=== PATIENT | female | born 1955 | race Caucasian/White ===

== ENCOUNTER 2017-06-04 19:17 | Observation (INO) ==
[2017-06-04] MEDS ORDERED: SALINE FLUSH 10ml SYRINGE IVF PRN (19:40)
[2017-06-04] MEDS ORDERED: ASPIRIN 81 MG CHEWABLE TABLET PO ONE (19:40)
--- NOTE | 2017-06-04 20:29 | Emergency Department Report ---
Chest Pain HPI - General Chief Complaint: Chest Pain Stated Complaint: cp Time Seen by Provider: 06/04/17 20:10 Source: patient, RN notes reviewed, old records reviewed Mode of arrival: ambulatory Limitations: no limitations - History of Present Illness HPI narrative: 62yo woman presents to the ER tonight for evaluation of CP. Pt had abrupt onset of right-sided CP while driving (around 1800); pt took x2 325mg ASA for the crushing, crescendo CP that radiated into her right jaw. Pt has never had sx like this before. Has a h/o borderline HL and HTN which are currently untreated. Has a strongly positive FHx of CAD/ME. By the time pt presented to the ER, 1hr after sx onset, her sx had resolved. Pt has had URI sx recently; took dayquil this AM (1/2 dose) and did not repeat the dose through the day. MD complaint: chest pain Occurred At: other Onset (ago): hour(s) (1) Duration: now resolved Onset: during exertion Pain location: substernal, right chest Severity: severe Severity scale (1-10): 8 Quality: heaviness Pain radiation: jaw/teeth Relieving factors: other (ASA) Associated symptoms: diaphoresis Aspirin Today: 325 mg x 1 (x2), provided at home Treatments prior to arrival chest pain: aspirin - Related Data On Oral Contraceptives: No Home Medications Medication Instructions Recorded Confirmed Aspirin 650 mg PO TID PRN 06/04/17 06/04/17 Dm/Acetaminophen/Doxylamine [Night 1 cap PO Q4H PRN 06/04/17 06/04/17 Time Cold-Flu Softgel] Dm/Pseudoephed/Acetaminophen 1 cap PO Q4H PRN 06/04/17 06/04/17 [Day-Time Cold-Flu Softgel] Allergies Allergy/AdvReac Type Severity Reaction Status Date / Time hydrocodone Allergy Unknown Nausea and Verified 06/04/17 19:45 Vomiting oxycodone Allergy Unknown Nausea and Verified 06/04/17 19:45 Vomiting Review of Systems All systems: reviewed and negative except as stated Cardiovascular: Reports: as per HPI, chest pain, dyspnea on exertion. Denies: palpitations, orthopnea, edema, syncope, paroxysmal nocturnal dyspnea PFSH Patient Stated Medical History Other Musculoskeletal Yes: rt shoulder - Social History Smoking status: Never smoker Physical Exam - Limitations Limitations: no limitations - General General appearance: alert, in no apparent distress - Normal Exams: Head:: Normocephalic without trauma Eyes:: Pupils are PERRLA w/ EOMI, No scleral icterus, irritation, or foreign bodies noted ENMT:: No facial trauma, nasal exudates, pharyngeal erythema, or exudates are noted Neck:: Full range of motion, without adenopathy Chest/Respirations:: Clear all wood[place], with good airflow, and symmetry bilaterally Cardiovascular:: Regular rate and rhythm, without murmur or gallop, Pulses 2+ all extremities, capillary refill, <2 seconds all extremities Abdomen:: Bowel sounds positive, soft, non-tender, non-distended, no hepatosplenomegaly, masses or bruits noted Lymphatic:: No lymphadenopathy Musculoskeletal:: No tenderness, or deformity noted, good range of motion, all extremities Integumentary:: No rashes, hives, or bruising noted, hair and nails, without abnormality Neurological:: Patient is alert, and oriented, cranial nerves, motor/sensory/ cerebellar, exams w/o gross deficits Psychiatric:: Patient exhibits, appropriate attention Course Vital Signs Temperature 98.2 F 06/04/17 19:34 Pulse Rate 86 06/04/17 19:34 Respiratory Rate 20 06/04/17 19:34 Blood Pressure 150/68 H 06/04/17 19:34 Pulse Oximetry 98 06/04/17 19:34 Temperature 98.2 F 06/04/17 19:34 Pulse Rate 82 06/04/17 20:01 Respiratory Rate 20 06/04/17 20:01 Blood Pressure 149/65 H 06/04/17 20:01 Pulse Oximetry 98 06/04/17 20:01 Chest Pain - MDM Narrative Medical decision making narrative: Pt with strong FHx of CAD/ME. Given pts sx (chest heaviness/pressure) and duration since sx onset (<6hrs) will contact hospitalist for admission for overnight CP r/o. Pt voiced understanding of dx, prognosis, tx, and f/u need. - Differential Diagnosis Likely: fracture of rib, pneumothorax, stable angina, unstable angina pectoris, atypical chest pain, costochondritis, chest pain - Medical Records Data Attestation: I reviewed the patient's medical records. - Lab Data Attestation: I reviewed the patient's lab results. Result diagrams: 06/04/17 19:49 06/04/17 19:49 Lab Results 06/04/17 06/04/17 Range/Units 19:49 19:49 WBC 5.7 (4.5-11.0) T/MM3 RBC 4.54 (4.00-5.20) M/MM3 Hgb 13.9 (12-16) GM/DL Hct 41.4 (36-46) % MCV 91.2 (80-100) UM3 MCH 30.6 (26-34) UUG MCHC 33.6 (31-37) GM/DL RDW Std Deviation 39.5 (36.9-50.2) FL Plt Count 316 (130-400) T/MM3 MPV 9.3 L (9.4-12.4) UM3 Immature Gran % (Auto) 0.0 (0.0-0.5) % Neut % (Auto) 59.5 (33-66) % Lymph % (Auto) 26.4 (23-45) % [place] % (Auto) 11.5 H (0-9.0) % Eos % (Auto) 2.1 (0-4) % Baso % (Auto) 0.5 (0-2) % Neut # (Auto) 3.4 (1.8-7.7) T/MM3 Lymph # (Auto) 1.5 (1-4.8) T/MM3 [place] # (Auto) 0.7 (0-0.8) T/MM3 Eos # (Auto) 0.1 (0-0.5) T/MM3 Baso # (Auto) 0.0 (0-0.2) T/MM3 Abs Immat Gran (auto) 0.00 (0.00-0.03) T/MM3 Turbidity < 20 (0-20) Sodium 145 H (134-144) MEQ/L Potassium 4.4 (3.6-5) MEQ/L Chloride 103 (98-107) MEQ/L Carbon Dioxide 31 H (22-30) MEQ/L Anion Gap 11 (5-15) MEQ/L BUN 17.0 (7-17) MG/DL Creatinine 0.9 (0.7-1.2) MG/DL GFR Calculation 63 BUN/Creatinine Ratio 19 (6-26) RATIO Glucose 87 (65-110) MG/DL Calculated Osmolality 280 (261-280) MOSM/KG Calcium 9.4 (8.4-10.2) MG/DL Icterus Index < 2 (0-7) Troponin I < 0.012 (0-0.12) ng/ml B-Natriuretic Peptide 56.3 (0-175) pg/mL Specimen Hemolysis < 15 (0-25) - Radiology Data Attestation: I reviewed the patient's radiology results. CXR: No acute CT pathology. - EKG Data EKG #1 EKG attestation: Yes: I reviewed and interpreted this EKG. EKG shows normal: sinus rhythm, axis, intervals, QRS complexes, ST-T waves Rate: normal Interpretation: normal EKG Disposition Clinical Impression: Chest pain Qualifiers: Chest pain type: unspecified Qualified Code(s): R07.9 - Chest pain, unspecified Disposition: 02 To [facility] Print Language: Vietnamese Condition: Improved Prescriptions: No Action Aspirin 650 mg PO TID PRN PRN Reason: Prn Orders Dm/Acetaminophen/Doxylamine [Night Time Cold-Flu Softgel] 1 cap PO Q4H PRN PRN Reason: Prn Orders Dm/Pseudoephed/Acetaminophen [Day-Time Cold-Flu Softgel] 1 cap PO Q4H PRN PRN Reason: Prn Orders Referrals: Ángela Medina MD [Family Provider] - Time of Disposition: 20:36 - Seen By: physician
[2017-06-04 21:50] VITALS: BMI 27.6
[2017-06-04] MEDS ORDERED: ACETAMINOPHEN 325 MG TABLET PO PRN (22:15)
[2017-06-04] MEDS ORDERED: ONDANSETRON 4 MG/2 ML INJECTION IVP PRN (22:15)
[2017-06-04] MEDS ORDERED: MORPHINE SULFATE 4mg INJECTION IVP PRN (22:15)
[2017-06-04] MEDS ORDERED: HYDROCODONE/APAP 5mg/325mg TABLET PO PRN (22:15)
[2017-06-04] MEDS ORDERED: DOCUSATE SODIUM 100 MG CAPSULE PO PRN (22:15)
--- NOTE | 2017-06-05 06:44 | History & Physical Report ---
History of Present Illness Date: 06/05/17 Chief complaint: right sided chest pain HPI: This is a 62 y/o female who was driving home from work in [place] and had onset of crushing right sided chest pain that went into her jaw. The patient has not had such a pain before. no activity to precipitate. The patient states she has had upper resp sx for the past week. She took a DayQuil this am. The patient did take 2 asa at home which did not improve the pain. She presents to the ED and ultimately her pain resolved with morphine. The initial ekg was non ischemic. first troponin was negative. At this time the pateint will be observation admitted to finish rule out. She had a previous exercise stress test 5 yrs ago that was unremarkable per her report Review of Systems Review of systems: no headache, no change in vision, no fever, chills or sweats, no sore throat. has had congestion recently, neck /jaw pain as noted above, no pnd, no orthopnea , no increased alexander, patient is active and has been able to do her ADLs without limitations, the patient has slight cough, non productive, no palpitations, no abdomen pain, no nausea/vomiting, no change in bm, no edema to legs, no focal neuro complaints. 12 point ROS otherwise neg except for outlined above Past Medical History Patient Stated Medical History Other HEENT Yes: Dizziness related to ear problems with the FLU Other Musculoskeletal Yes: rt shoulder-contusions from being bucked from a horse. Surgical History: TROY, bilateral carpal tunnel, left breast duct excised. Family History Updates: sign history of cardiac diseae in family - Social History Smoking status: Never smoker Substance use type: does not use Alcohol intake frequency: a few times a month Housing: house Household members: spouse Current occupational status: employed Current residence: Apartment/Private Home Medications Home Medications Medication Instructions Recorded Confirmed Type Aspirin 650 mg PO TID PRN 06/04/17 06/04/17 History Dm/Acetaminophen/Doxylamine [Night 1 cap PO Q4H PRN 06/04/17 06/04/17 History Time Cold-Flu Softgel] Dm/Pseudoephed/Acetaminophen 1 cap PO Q4H PRN 06/04/17 06/04/17 History [Day-Time Cold-Flu Softgel] Allergies Allergy/AdvReac Type Severity Reaction Status Date / Time hydrocodone Allergy Unknown Nausea and Verified 06/04/17 19:45 Vomiting oxycodone Allergy Unknown Nausea and Verified 06/04/17 19:45 Vomiting Exam Vital Signs: Temperature 97.8 F 06/05/17 04:35 Pulse Rate 82 06/05/17 04:35 Respiratory Rate 16 06/05/17 04:35 Blood Pressure 102/58 06/05/17 04:35 Pulse Oximetry 98 06/05/17 04:35 Telemetry Rhythm: Sinus Rhythm Height/Weight/BMI: Height 1.7 m Weight 80.1 kg Body Mass Index 27.6 - Constitutional Present: no acute distress, well developed, average body habitus, cooperative - Routine HEENT Exam Head: Present: normocephalic, atraumatic Eye: Present: PERRL ENT: Present: mucous membranes moist - Routine Neck Exam Present: supple, full ROM - Routine Respiratory Exam Present: CTA bilaterally. Absent: rhonchi, wheezes - Routine Cardiovascular Exam Present: RRR, no murmur - Routine Abdominal Exam Present: soft, non distended, non tender - Routine Back/Spine/Pelvis Exam Back/Spine: Present: full ROM - Routine Skin Exam Present: intact - Routine Neurological Exam Present: alert, oriented X3, vision grossly intact, hearing grossly intact. Absent: motor deficit, altered mental status, abnormal gait, facial asymmetry - Routine Psychiatric Exam Present: normal affect, normal thought process Results - Labs CBC & Chem 7: 06/05/17 05:18 06/05/17 05:18 Labs: labs reasuring - ECG Data Tracing #1 sinus without ischemic changes - Imaging and Cardiology Chest x-ray Additional comments: no acute process Assessment and Plan (1) Chest pain Current visit: Yes Status: Acute Assessment and Plan: 1. chest pain acute POA: rule out, tele, risk are family history, hx of HTN dyslipidemia. check a1c and lipid panel check tsh. neg stress 5 yrs ago. would like to stress today. nursing wasn't sure this was done in house? defer to am MD to confirm. DDX: MS, GERD, ? gallbladder, unstable angina less likely , DVT Prophylaxis: SCD's Resuscitation Status: Full Code - Physician Narrative Physician: Adilson Kenney MD Narrative: Date: 06/05/17 Time: 1150 Anne Marie I have independently interviewed and examined patient. Chart reviewed. Reviewed above note and concur. CC: Chest pain HPI: 62 y/o female presents to [facility] ED for evaluation of chest pain. Driving home from work when developed sudden onset of squeezing tightness to right side of chest. Would wax and wain. Pain radiated to right neck. Noted feeling short of breath secondary to pain. No palpitations. Slight nausea. Never had pain like this before. No recent trauma or injury, but did work with PT on her right shoulder the day prior to symptom onset. Recently having upper respiratory cough and congestion. Over [place] was exposed to many sick people, one of which was positive with influenza. No f/c. No acid reflux or difficulty swallowing. No rashes to chest. Does have significant cardiac history in family. Took 2 ASA to help pain, little relief. As symptoms continued to wax and wane, decided to present to [facility] [place] for [place]. Pain occurred on drive from home to ED, but resolved by time in ED. Initial troponin and EKG negative. Placed in OBS for further evaluation. PMHx: OA, allergies SxHx: TROY, Bilaterally carpel tunnel. All: hydrocodone, oxycodone. Meds: non routinely SHx: x6 years (together for ~20+ years). No smoke. Lives in [place]. Dr Chacorta Medina PCP. FHx: Father had first WA at age 42- at 72 secondary to heart disease. All her GP had heart disease. ROS: as in HPI. Remainder of 10 point ROS discussed with patient and negative. Exam: GEN: [id number] HEENT: NC/AT PERRLA EOMI MMM Neck: Supple, midline, no tracheal deviation CV: regular without murmur. Strong and equal radial pulses bilaterally. Lungs: clear bilaterally. No crackles, wheezed, or distress AB: soft nt/nd +BS EXT: No C/C/E. SCD in place bilaterally Skin: warm and dry. No rashes. Neuro: CN II-XII intact. No focal motor deficits Psych: awake alert appropriate. Thoughts linear. Good insight and judgement. Converses well. MS: Normal muscle mass and tone. Assessment Left sided chest pain - Exclude AMI Family Hx of early cardiac disease Elevated Blood pressure in ED - suspect stress response OA Overweight with BMI 27.7. Plan OBS admission to exclude AMI Tele. Serial enzymes. SCD for DVT prevention. With risk factors, will discuss case with cardiology as outpatient stress testing would be reasonable. Full code as per her requests. Care to return to Dr Chacorta Medina at time of discharge from [facility]. Hospital Course Summary Disclaimer: The visit summary below is not to be considered part of the above Progress Note.
[2017-06-05 07:55] VITALS: RESP 20; TEMP 97.9
--- NOTE | 2017-06-05 08:09 | XRay Report ---
Indication: Right-sided chest pain with shortness of air today PROCEDURE: XR chest 1V: Encounter: Initial Comparison: None FINDINGS: The lungs are clear. There is no abnormal airspace opacity, pleural effusion or pneumothorax identified. The heart size, pulmonary vasculature and mediastinum are within normal limits. No significant skeletal abnormality is seen. IMPRESSION: No acute cardiopulmonary abnormality. .
[2017-06-05 11:55] VITALS: BP 129/68; O2SAT 98
[2017-06-05 13:53] VITALS: PULSE 95
--- NOTE | 2017-06-05 19:43 | Discharge Summary ---
Discharge Information Date of admission: 06/04/17 21:34 Anticipated date of discharge: 06/05/17 Attending Physician: Adilson Kenney MD Primary care physician: Ángela Medina MD - Discharge Diagnosis (1) Chest pain Status: Acute Admission diagnosis Right sided chest pain - Exclude AMI Discharge diagnosis Right sided chest pain - resolved. No evidence of AMI. Associated conditions and complications Family Hx of early cardiac disease Elevated Blood pressure in ED - suspect stress response OA Overweight with BMI 27.7. - Laboratory Labs: 06/05/17 05:18 06/05/17 05:18 Laboratory Tests 06/04/17 06/05/17 06/05/17 19:49 00:00 05:18 Troponin I < 0.012 < 0.012 < 0.012 Laboratory Tests 06/05/17 05:18 TSH 2.46 - Radiology Radiology: Date of Exam: 06/04/17 PROCEDURE: XR chest 1V FINDINGS: The lungs are clear. There is no abnormal airspace opacity, pleural effusion or pneumothorax identified. The heart size, pulmonary vasculature and mediastinum are within normal limits. No significant skeletal abnormality is seen. IMPRESSION: No acute cardiopulmonary abnormality. History of Present Illness HPI: This is a 62 y/o female who was driving home from work in [place] and had onset of crushing right sided chest pain that went into her jaw. The patient has not had such a pain before. no activity to precipitate. The patient states she has had upper resp sx for the past week. She took a DayQuil this am. The patient did take 2 asa at home which did not improve the pain. She presents to the ED and ultimately her pain resolved with morphine. The initial ekg was non ischemic. first troponin was negative. At this time the pateint will be observation admitted to finish rule out. She had a previous exercise stress test 5 yrs ago that was unremarkable per her report For complete details of the H&P refer to that document. Objective Vital signs: Temperature 97.9 F 06/05/17 11:54 Pulse Rate 95 06/05/17 13:14 Respiratory Rate 20 06/05/17 11:54 Blood Pressure 129/68 06/05/17 11:54 Pulse Oximetry 98 06/05/17 11:54 Height/Weight/BMI: Height 1.7 m Weight 80.3 kg Body Mass Index 27.6 Hospital Course This is a general summary of the patient's hospital course. For more details refer to the complete medical record. Hospital course: 06/04/17 Initiation of observation Assessment Righ sided chest pain - Exclude AMI Family Hx of early cardiac disease Elevated Blood pressure in ED - suspect stress response OA Overweight with BMI 27.7. Plan OBS admission to exclude AMI Tele. Serial enzymes. SCD for DVT prevention. With risk factors, will discuss case with cardiology as outpatient stress testing would be reasonable. Full code as per her requests. Care to return to Dr Chacorta Medina at time of discharge from [facility]. 06/05/17 Chest pain has resolved and not returned. Patient able to ambulate well without chest pressure, pain, or palpitations. Troponin all undetectable - no evidence of acute KS. Discussed with patient and her about further cardiac evaluation. Discussed with Dr Mooney's provider, Echo. Will work on setting up outpatient cardiac stress testing. Recommend low dose aspirin 81mg daily for cardiac protection. Advised signs and symptoms to watch for with aspirin. May return to work tomorrow. Regular diet. Regular activities. F/U with Dr Chacorta Medina in 1 week for medical evaluation. F/U with Dr Mooney in 1-2 weeks for cardiac stress testing. See orders for details. Time spent with patient: discharge greater than 30 minutes DVT Prophylaxis: SCD's Discharge Plan - Discharge Disposition Discharge Date: 06/05/17 Disposition: 01 Discharged Home, Self-Care *Condition: Improved Reason For Visit (Visit label in EMR): Chest Pain - Discharge Medications *Discharge Medications: New Aspirin Chewable [ASA] 81 mg PO DAILY #1 bottle Continue Aspirin 650 mg PO TID PRN PRN Reason: Prn Orders Dm/Acetaminophen/Doxylamine [Night Time Cold-Flu Softgel] 1 cap PO Q4H PRN PRN Reason: Prn Orders Dm/Pseudoephed/Acetaminophen [Day-Time Cold-Flu Softgel] 1 cap PO Q4H PRN PRN Reason: Prn Orders - Discharge Packet/Instructions *Diet: Regular *Activity: As tolerated *Pain Management/Treatment: Continue prior home pain medications *Wound Care: N/A Additional Instructions: Take ASA 81mg daily for heart protection. Watch for upset stomach/dypepsia. Watch for tarry dark, black, or sticky stools as this could be a sign of internal bleeding of the gut. *Expected Signs/Symptoms: Resolution of chest pain *Notify Physician if: Chest pain/pressure, palpitations, swelling of legs, difficulty breathing. *During Business Hours Contact: Dr Medina *After Business Hours Contact: Dr Medina *Pending Lab/Results: No Pending Lab - Referrals/Follow Up *Referrals/Follow Up: Harley Mooney MD [Physician] - 1 Week (Stress testing. Evaluation in 1-2 weeks. ) Donis Morejon MD [Physician] - 06/11/17 3:00 pm Ángela Medina MD [Family Provider] - 06/13/17 1:30 pm (Hospital follow up for chest pain ) - Patient Handouts Patient Handouts: Chest Pain (GEN) - Dismissal Complete Discharge Instructions are:: Complete Physician Narrative - Narrative Physician: Adilson Kenney MD Attestation Narrative: I have independently interviewed and examined patient prior to discharge. See H& P notation from today. Medically stable for discharge to home.
== END 2017-06-05 13:50 | disposition home or self-care (01) ==
LOC: SRG 19:17 → ED 19:17 → SUATTDRO 21:34 → SRG 21:45
PROVIDERS: ADMIT Emergency Medicine; ATTEND Hospitalist